=== PATIENT | male | born 1940 | race Caucasian/White ===

== ENCOUNTER 2022-05-20 08:11 | Day surgery (SDC) | payer MEDICARE, BC ==
[~2022-05-20] VITALS: Ht 177.8 cm; Wt 77.5 kg
[2022-05-20] VITALS (11 sets, daily range): BP systolic 125–158; BP diastolic 74–84
[2022-05-20] MEDS ORDERED: SEMA1PEN3 SQ (08:43)
[2022-05-20] MEDS ORDERED: ONDA8TAB13 PO (08:43)
[2022-05-20] MEDS ORDERED: TRAZ-251 PO (08:43)
[2022-05-20] MEDS ORDERED: ROSU5TAB12 PO (08:43)
[2022-05-20] MEDS ORDERED: OMEP40CA21 PO (08:43)
[2022-05-20] MEDS ORDERED: TEST75GE10 TOP (08:43)
[2022-05-20] MEDS ORDERED: TOLT4CAP28 PO (08:43)
[2022-05-20] MEDS ORDERED: LEVO112T5 PO (08:43)
[2022-05-20] MEDS ORDERED: TRAM50TA2 PO (08:43)
[2022-05-20] MEDS ORDERED: DAPA10TA PO (08:43)
[2022-05-20] MEDS ORDERED: AZEL137S4 BOTHNARES (08:43)
[2022-05-20] MEDS ORDERED: METF-900 PO (08:43)
[2022-05-20] MEDS ORDERED: diphenhydrAMINE 25mg capsule PO PRN (08:50)
[2022-05-20] MEDS ORDERED: normal saline 1,000 ML IV SCH (08:50)
[2022-05-20] MEDS ORDERED: midazolam 1 mg/ML 2ml injection ONE ×4 (09:19→11:28)
[2022-05-20] MEDS ORDERED: fentaNYL/PF 50MCG/1 ML 2ML syringe ONE (09:19)
[2022-05-20] MEDS ORDERED: heparin 1,000unit/ml 10ml vial 10 ML ONE ×2 (09:19→11:38)
[2022-05-20] MEDS ORDERED: LIDOcaine 1% 30ml preserv. free vial ONE (09:19)
[2022-05-20] MEDS ORDERED: iohexol 350MG/ML 100ml bottle IV ONE ×3 (09:20→11:45)
[2022-05-20] MEDS ORDERED: iohexol 350 MG/ML 50ML vial IV ONE (09:20)
[2022-05-20] MEDS ORDERED: verapamil 2.5 mg/ml inj IV ONE (10:50)
[2022-05-20] MEDS ORDERED: nitroGLYCERIN-Tridil 50MG/D5W 250 ML IV ONE (10:50)
[2022-05-20 10:58] LABS: BASOPHILS # (AUTO) 0.1 X10'3 (0-0.2); BASOPHILS % (AUTO) 1.4 % (0-1); EOSINOPHILS # (AUTO) 0.1 X10'3 (0-0.9); EOSINOPHILS % (AUTO) 2.6 % (0-6); HEMATOCRIT 42.4 % (42.0-52.0); HEMOGLOBIN 13.9 g/dl (14.0-17.9); LYMPHOCYTES # (AUTO) 0.9 X10'3 (1.1-4.8); MEAN CORPUSCULAR HEMOGLOBIN 31.8 PG (27.0-31.0); MEAN CORPUSCULAR HGB CONC 32.8 g/dL (33.0-36.5); MEAN CORPUSCULAR VOLUME 96.8 FL (78-98); MEAN PLATELET VOLUME 7.6 FL (7.4-10.4); MONOCYTES # (AUTO) 0.4 X10'3 (0-0.9); MONOCYTES % (AUTO) 8.6 % (2-12); NEUTROPHILS # (AUTO) 2.8 X10'3 (1.8-7.7); NEUTROPHILS % (AUTO) 65.4 % (42-75); PLATELET COUNT 228 X10'3 (140-440); RED BLOOD COUNT 4.37 X10'6 (4.70-6.10); RED CELL DISTRIBUTION WIDTH 13.7 % (11.5-14.5); WHITE BLOOD COUNT 4.2 X10'3 (4.5-11.0)
[2022-05-20 11:13] LABS: ALBUMIN 3.8 G/DL (3.4-5.0); ANION GAP 7 (8-16); BLOOD UREA NITROGEN 20 MG/DL (7-18); BUN/CREATININE RATIO 19.4 (10.0-20.0); CALCIUM 9.2 MG/DL (8.5-10.1); CHLORIDE 106 MMOL/L (99-107); CREATININE 1.03 MG/DL (0.60-1.10); GLUCOSE 101 MG/DL (70-104); MAGNESIUM 2.3 MG/DL (1.5-2.4); SODIUM 142 MMOL/L (135-145); TOTAL CARBON DIOXIDE 29.2 MMOL/L (24-32); eGFR 69 ML/MIN
[2022-05-20] MEDS ORDERED: atropine 0.1mg/ml 10ml syringe ONE (11:55)
[2022-05-20] MEDS ORDERED: ticagrelor 90mg tablet ONE (11:58)
[2022-05-20] MEDS ORDERED: HYDROcodone/acetaminophen 5mg/325mg tablet PO PRN (12:35)
[2022-05-20] MEDS ORDERED: acetaminophen 325mg tablet PO PRN (12:35)
[2022-05-20] MEDS ORDERED: normal saline 1000ml 1,000 ML IV SCH ×2 (12:35→12:40)
[2022-05-20] MEDS ORDERED: ondansetron/PF 4mg/2ml inj IV PRN (12:35)
[2022-05-20] MEDS ORDERED: HYDROcodone/acetaminophen 10/325mg tab PO PRN (12:35)
[2022-05-20] MEDS ORDERED: proCHLORperazine 10 MG/2 ml inj IV PRN (12:35)
== END 2022-05-20 16:15 | disposition home or self-care (01) ==
LOC: SSTAY O 08:11
PROVIDERS: ATTEND Internal Medicine Cardiovascular Disease
DX: I25.10 Atherosclerotic heart disease of native coronary artery without angina pectoris (principal); Z79.899 Other long term (current) drug therapy; M19.90 Unspecified osteoarthritis, unspecified site; E11.9 Type 2 diabetes mellitus without complications; G47.00 Insomnia, unspecified; G47.30 Sleep apnea, unspecified; E78.00 Pure hypercholesterolemia, unspecified; E03.9 Hypothyroidism, unspecified; Z87.442 Personal history of urinary calculi; Z96.659 Presence of unspecified artificial knee joint; Z83.3 Family history of diabetes mellitus; Z82.49 Family history of ischemic heart disease and other diseases of the circulatory system; Z98.890 Other specified postprocedural states
CPT/HCPCS: 36415; 80048; 82948; 83735; 85025; 85610; 93005; 93454; 99152; 99153; A6258; C1725; C1751; C1769; C1874; C1894; C9600; J1644; J2250; J3010; J3490; J7030; J7040; Q0163; Q9967; A6402; J0461

== ENCOUNTER 2022-08-26 08:02 | Day surgery (SDC) | payer MEDICARE, BC ==
[2022-08-26] VITALS (9 sets, daily range): BP systolic 131–151; BP diastolic 70–81
[~2022-08-26] VITALS: Ht 177.8 cm; Wt 77.2 kg
[~2022-08-26 08:02] MED LIST: AZEL137S4 BOTHNARES; CLOP-32 PO; DAPA10TA PO; LEVO112T5 PO; METF-900 PO; OMEP40CA21 PO; ONDA8TAB13 PO; ROSU5TAB12 PO; SEMA1PEN3 SQ; TOLT4CAP28 PO; TRAM50TA2 PO; TRAZ-251 PO
[2022-08-26] MEDS ORDERED: diphenhydrAMINE 25mg capsule PO PRN (08:25)
[2022-08-26] MEDS ORDERED: normal saline 1,000 ML IV SCH (08:25)
[2022-08-26] MEDS ORDERED: PANT40TA54 PO (08:28)
[2022-08-26] MEDS ORDERED: ASPI-1397 PO (08:28)
[2022-08-26] MEDS ORDERED: CLOP75TA34 PO (08:28)
[2022-08-26 08:53] LABS: BASOPHILS # (AUTO) 0.1 X10'3 (0-0.2); EOSINOPHILS # (AUTO) 0.1 X10'3 (0-0.9); PLATELET COUNT 211 X10'3 (140-440); WHITE BLOOD COUNT 4.5 X10'3 (4.5-11.0)
[2022-08-26 08:55] LABS: BASOPHILS % (AUTO) 1.2 % (0-1); HEMATOCRIT 42.9 % (42.0-52.0); LYMPHOCYTES # (AUTO) 1.2 X10'3 (1.1-4.8); LYMPHOCYTES % (AUTO) 27.1 % (21-51); MEAN CORPUSCULAR HEMOGLOBIN 31.2 PG (27.0-31.0); MEAN CORPUSCULAR HGB CONC 32.6 g/dL (33.0-36.5); MEAN CORPUSCULAR VOLUME 95.7 FL (78-98); MEAN PLATELET VOLUME 7.2 FL (7.4-10.4); MONOCYTES # (AUTO) 0.4 X10'3 (0-0.9); MONOCYTES % (AUTO) 8.5 % (2-12); NEUTROPHILS # (AUTO) 2.8 X10'3 (1.8-7.7); NEUTROPHILS % (AUTO) 61.2 % (42-75); RED BLOOD COUNT 4.48 X10'6 (4.70-6.10); RED CELL DISTRIBUTION WIDTH 14.3 % (11.5-14.5)
[2022-08-26 09:07] LABS: ALBUMIN 4.4 G/DL (3.4-5.0); ANION GAP 11 (8-16); CALCIUM 9.5 MG/DL (8.5-10.1); CHLORIDE 104 MMOL/L (99-107); CREATININE 1.29 MG/DL (0.60-1.10); GLUCOSE 97 MG/DL (70-104); MAGNESIUM 2.1 MG/DL (1.5-2.4); SODIUM 142 MMOL/L (135-145); TOTAL CARBON DIOXIDE 26.8 MMOL/L (24-32); eGFR 53 ML/MIN
[2022-08-26 09:16] LABS: BLOOD UREA NITROGEN 21 MG/DL (7-18); BUN/CREATININE RATIO 16.3 (10.0-20.0)
[2022-08-26] MEDS ORDERED: LIDOcaine 1% (10mg/ml) 2ml vial ONE (09:38)
[2022-08-26] MEDS ORDERED: iohexol 350MG/ML 100ml bottle IV ONE ×2 (09:38→11:36)
[2022-08-26] MEDS ORDERED: nitroGLYCERIN-Tridil 50MG/D5W 250 ML IV ONE (09:38)
[2022-08-26] MEDS ORDERED: fentaNYL/PF 50MCG/1 ML 2ML syringe ONE (09:38)
[2022-08-26] MEDS ORDERED: iohexol 350 MG/ML 50ML vial IV ONE (09:38)
[2022-08-26] MEDS ORDERED: midazolam 1 mg/ML 2ml injection ONE ×2 (09:38→11:55)
[2022-08-26] MEDS ORDERED: verapamil 2.5 mg/ml inj IV ONE (09:38)
[2022-08-26] MEDS ORDERED: heparin 1,000unit/ml 10ml vial 10 ML ONE (09:39)
[2022-08-26] MEDS ORDERED: LIDOcaine 1% 30ml preserv. free vial ONE (11:39)
[2022-08-26] MEDS ORDERED: clopidogrel 300mg tablet ONE (12:13)
[2022-08-26] MEDS ORDERED: HYDROcodone/acetaminophen 5mg/325mg tablet PO PRN (13:25)
[2022-08-26] MEDS ORDERED: proCHLORperazine 10 MG/2 ml inj IV PRN (13:25)
[2022-08-26] MEDS ORDERED: ondansetron/PF 4mg/2ml inj IV PRN (13:25)
[2022-08-26] MEDS ORDERED: HYDROcodone/acetaminophen 10/325mg tab PO PRN (13:25)
[2022-08-26] MEDS ORDERED: normal saline 1000ml 1,000 ML IV SCH (13:30)
== END 2022-08-26 16:05 | disposition home or self-care (01) ==
LOC: SSTAY O 08:02
PROVIDERS: ATTEND Internal Medicine Cardiovascular Disease
DX: I25.10 Atherosclerotic heart disease of native coronary artery without angina pectoris (principal); M19.90 Unspecified osteoarthritis, unspecified site; E11.9 Type 2 diabetes mellitus without complications; G47.30 Sleep apnea, unspecified; G47.00 Insomnia, unspecified; I10 Essential (primary) hypertension; E78.5 Hyperlipidemia, unspecified; Z96.659 Presence of unspecified artificial knee joint; Z95.5 Presence of coronary angioplasty implant and graft; Z79.82 Long term (current) use of aspirin; Z79.01 Long term (current) use of anticoagulants; Z79.899 Other long term (current) drug therapy; Z79.84 Long term (current) use of oral hypoglycemic drugs; Z87.442 Personal history of urinary calculi; Z72.89 Other problems related to lifestyle; Z88.1 Allergy status to other antibiotic agents; Z82.3 Family history of stroke; Z83.3 Family history of diabetes mellitus
CPT/HCPCS: 36415; 80048; 82948; 83735; 85025; 85610; 93005; 93458; 93571; 99152; 99153; C1874; C9600; J1644; J2250; J3010; J3490; J7030; Q0163; Q9967; A6258; A6402; A6449; C1725; C1751; C1760; C1769; C1894